=== PATIENT | male | born 1970 | race African-American/Black ===

== ENCOUNTER 2018-05-29 19:08 | Emergency (ER) | payer SELFPAY ==
[~2018-05-29] VITALS: Ht 185.4 cm; Wt 84.5 kg
[2018-05-29 19:13] VITALS: TEMP 99.8
[2018-05-29] MEDS ORDERED: CLEOCIN HC150 MG/CAP PO (19:36)
[2018-05-29 19:57] VITALS: BP 114/75; PULSE 74
== END 2018-05-29 19:58 | disposition home or self-care (01) ==
LOC: COL.ER 19:08
DX: H66.92 Otitis media, unspecified, left ear (principal); H69.90 Unspecified Eustachian tube disorder, unspecified ear; F17.210 Nicotine dependence, cigarettes, uncomplicated

== ENCOUNTER 2018-07-03 10:11 | Emergency (ER) | payer SELFPAY ==
[~2018-07-03] VITALS: Ht 185.4 cm; Wt 72.7 kg
[~2018-07-03 10:11] MED LIST: CLEOCIN HC150 MG/CAP PO
[2018-07-03 10:23] VITALS: BP 129/84; TEMP 99.2
[2018-07-03] MEDS ORDERED: ZOFRAN ODT4 MG PO (13:36)
[2018-07-03] MEDS ORDERED: PHENERGAN 25 TA25 MG PO (13:36)
[2018-07-03 13:43] VITALS: PULSE 86
== END 2018-07-03 13:43 | disposition home or self-care (01) ==
LOC: COL.ER 10:11
DX: R11.10 Vomiting, unspecified (principal); J06.9 Acute upper respiratory infection, unspecified; R19.7 Diarrhea, unspecified; F17.210 Nicotine dependence, cigarettes, uncomplicated

== ENCOUNTER 2023-05-02 13:58 | Emergency (ER) | payer OTHER ==
[~2023-05-02] VITALS: Ht 188 cm; Wt 84.1 kg
[~2023-05-02 13:58] MED LIST changes: +PHENERGAN 25 TA25 MG PO; +ZOFRAN ODT4 MG PO
[2023-05-02 14:17] VITALS: TEMP 98.1
[2023-05-02] MEDS ORDERED: LR 1,000 ML IV ONE (15:15)
[2023-05-02] MEDS ORDERED: Ondansetron 4 MG/2 ML VIAL IV ONE (15:15)
[2023-05-02] MEDS ORDERED: Morphine 4 MG/ML VIAL IV ONE (15:15)
[2023-05-02] MEDS ORDERED: DAILY MULTIPLE1 T18 PO (15:19)
[2023-05-02 15:25] LABS: COLLECTION METHOD CLEAN CATCH
[2023-05-02 15:28] LABS: BASO % 0.7 % (0.0-2.0); EOS # 0.4 K/mm3 (0.0-0.7); EOS % 9.7 % (0.0-4.0); GRAN # 1.8 K/mm3 (1.4-6.5); GRAN % 40.3 % (42.2-75.2); HEMATOCRIT 43.4 % (42.0-52.0); HEMOGLOBIN 14.5 g/dl (13.5-18.0); LYMPH # 1.7 K/mm3 (1.2-3.4); LYMPH % 37.8 % (20.0-51.0); MEAN CELL VOLUME 93 fl (80.0-100.0); MEAN CORPUSCULAR HEMOGLOBIN 31 pg (27-31); MEAN CORPUSCULAR HGB CONC 33 g/dl (33.0-37.0); MEAN PLATELET VOLUME 10.8 fl (7.4-10.4); MONO # 0.5 K/mm3 (0.1-0.6); MONO % 11.5 % (1.7-9.3); PLATELET COUNT 214 K/mm3 (130-400); RED BLOOD COUNT 4.67 M/mm3 (4.20-5.60); REDCELL DISTRIBUTION WIDTH-CV 12.2 % (11.5-14.5)
[2023-05-02 15:38] LABS: PH 6.5 (5.0-8.5); URINE APPEARANCE Clear (CLEAR/HAZY); URINE BLOOD TRACE-INTACT (NEGATIVE); URINE COLOR Yellow (YELLOW); URINE GLUCOSE Negative (NEGATIVE); URINE KETONE Negative (NEGATIVE); URINE NITRATE Negative (NEGATIVE); URINE PROTEIN(semi-quant) Negative (NEGATIVE); URINE UROBILINOGEN 0.2 E.U/dL (0.2-1.0)
[2023-05-02 15:39] LABS: SQUAMOUS EPITHELIAL 0-2 /hpf (0-10); URINE RBC 0-2 /hpf (0-2)
[2023-05-02 15:47] LABS: ALBUMIN 4.1 gm/dL (3.5-5.0); BILIRUBIN,TOTAL 0.6 mg/dL (0.2-1.2); C-REACTIVE PROTEIN 0.34 mg/dL (0.00-0.50); CALCIUM 9.6 mg/dL (8.4-10.2); CREATININE, serum 0.97 mg/dL (0.72-1.25); POTASSIUM 3.9 mmol/L (3.5-4.5)
[2023-05-02] MEDS ORDERED: Iohexol 300 - 100 ML VIAL IV ONE (16:24)
[2023-05-02] MEDS ORDERED: NS 100 ML IV SCH (16:25)
[2023-05-02] MEDS ORDERED: NORCO 325 MG-51 TAB PO (16:56)
[2023-05-02] MEDS ORDERED: SALONPAS1 EACH TP (17:03)
[2023-05-02 17:23] VITALS: BP 135/92; PULSE 44
== END 2023-05-02 17:25 | disposition home or self-care (01) ==
LOC: COL.ER 13:58
PROVIDERS: Family Medicine
DX: R10.31 Right lower quadrant pain (principal)
CPT/HCPCS: J2270; J2405; J7120; Q9967